=== PATIENT | female | born 1975 | race Caucasian/White ===

== ENCOUNTER → 2020-05-12 | Outpatient (CLI) | payer OTHER ==
[~2020-05-12] MED LIST: IBUPROFEN600 MG PO; NORFLEX 100 MG100 MG PO; PREDNISONE 50 M50 MG PO; Voltaren Gel 1 % TOP
== END ==
LOC: HEART 5 04-08 08:30
DX: R06.02 Shortness of breath (principal); I27.20 Pulmonary hypertension, unspecified; I08.1 Rheumatic disorders of both mitral and tricuspid valves
CPT/HCPCS: 78452; 93306; A9502

== ENCOUNTER 2020-06-29 09:06 | Emergency (ER) | payer OTHER ==
[2020-06-29 09:51] LABS: RED BLOOD COUNT 4.13 M/UL (4.00-5.10); WHITE BLOOD COUNT 9.5 K/UL (4.5-11.0)
[2020-06-29 10:14] LABS: BUN/CREATININE RATIO 26 (0-10)
== END 2020-06-29 12:45 | disposition home or self-care (01) ==
LOC: ER1 09:06
PROVIDERS: Physician Assistant
DX: R07.9 Chest pain, unspecified (principal); I10 Essential (primary) hypertension; Z79.899 Other long term (current) drug therapy
CPT/HCPCS: 71045; 80053; 82550; 82553; 83874; 84484; 85025; 93005; 99285